=== PATIENT | male | born 1975 | race Caucasian/White ===

== ENCOUNTER → 2017-03-24 | Outpatient (CLI) | payer BC ==
[~2017-03-24] MED LIST: ASPI-621 PO; ATOR80TA75 PO; LISI5TAB7 PO; METO25TA35 PO; NITR0.4T SL; PRAS10TA4 PO
== END | disposition home or self-care (01) ==
LOC: CVU 11:25
PROVIDERS: ATTEND Internal Medicine Cardiovascular Disease
DX: I51.7 Cardiomegaly (principal); I25.10 Atherosclerotic heart disease of native coronary artery without angina pectoris; I25.2 Old myocardial infarction; Z95.5 Presence of coronary angioplasty implant and graft
CPT/HCPCS: C8929